=== PATIENT | female | born 2000 | race Caucasian/White ===

== ENCOUNTER 2023-07-04 13:13 | Emergency (ER) | payer SELFPAY ==
[~2023-07-04] VITALS: Ht 157.5 cm; Wt 57.0 kg
[2023-07-04 13:34] VITALS: BP 126/76; PULSE 74; RESP 18; TEMP 96.1
[2023-07-04] MEDS ORDERED: MOXI3DRO25 OS (13:42)
== END 2023-07-04 15:40 | disposition home or self-care (01) ==
LOC: EMS 13:17 → EDSEX 13:17 → EMS 15:40
DX: H10.9 Unspecified conjunctivitis (principal); F12.90 Cannabis use, unspecified, uncomplicated
CPT/HCPCS: 99283

== ENCOUNTER 2023-07-20 01:02 | Emergency (ER) | payer OTHER ==
[~2023-07-20] VITALS: Ht 160 cm; Wt 56.8 kg
[~2023-07-20 01:02] MED LIST: MOXI3DRO25 OS
[2023-07-20 01:20] VITALS: TEMP 99.3
[2023-07-20 01:31] LABS: COVID AG,FIA SOURCE NASAL SWAB
[2023-07-20 01:37] LABS: APPEARANCE,URINE CLEAR (CLEAR); BILIRUBIN,URINE NEGATIVE (NEGATIVE); COLOR,URINE YELLOW (YELLOW); GLUCOSE, URINE (UA) NEGATIVE (NEGATIVE); KETONES,URINE 40-60 mg/dL (NEGATIVE); LEUKOCYTE ESTERASE ,URINE NEGATIVE (NEGATIVE); NITRATE,URINE NEGATIVE (NEGATIVE); OCCULT BLOOD,URINE MODERATE (NEGATIVE); PH,URINE 6.5 (5.0-8.0); PH,URINE DRUG SCREEN 6.5 (5.0-8.0); PROTEIN,URINE TRACE mg/dL (NEGATIVE); SPECIFIC GRAVITIY, URINE 1.027 (1.003-1.030); UROBILINOGEN,URINE <=1.0 mg/dL (<=1.0)
[2023-07-20 01:44] LABS: ALCOHOL, URINE DRUG SCREEN NEGATIVE (NEGATIVE); AMPHET/METH SCREEN,URINE NEGATIVE (NEGATIVE); BARBITURATE SCREEN, URINE NEGATIVE (NEGATIVE); BENZODIAZEPINES SCREEN,URINE NEGATIVE (NEGATIVE); CANNABINOID SCREEN,URINE POSITIVE (NEGATIVE); COCAINE SCREEN,URINE NEGATIVE (NEGATIVE); METHADONE SCREEN, URINE NEGATIVE (NEGATIVE); OPIATE SCREEN,URINE NEGATIVE (NEGATIVE); PHENCYCLIDINE SCREEN,URINE NEGATIVE (NEGATIVE)
[2023-07-20 01:51] LABS: HCG,QUAL URINE NEGATIVE (NEGATIVE)
[2023-07-20 02:00] VITALS: BP 111/58; PULSE 107; RESP 22
[2023-07-20 02:02] LABS: SARS-COV2 (COVID) ANTIGEN,FIA Negative (Negative)
[2023-07-20 02:07] LABS: INFLUENZA TYPE A NEGATIVE FOR TYPE A (NEGATIVE); INFLUENZA TYPE B NEGATIVE FOR TYPE B (NEGATIVE)
[2023-07-20 02:13] LABS: BACTERIA,URINE None Seen /HPF (None Seen); SQUAMOUS EPITHELIAL CELL,UR Moderate /LPF (None Seen); WBC,URINE None Seen /HPF (0-5)
[2023-07-20] MEDS ORDERED: LORazepam 1 MG TABLET PO ONE (03:00)
[2023-07-20] MEDS ORDERED: ONDA-104 PO (03:06)
[2023-07-20] MEDS: ONDANSETRON HCL 4 MG TABLET PO ONE (03:10)
[2023-07-20] MEDS: LORazepam 0.5 MG TABLET PO ONE (03:19)
== END 2023-07-20 03:32 | disposition home or self-care (01) ==
LOC: EMS 01:02
DX: F41.9 Anxiety disorder, unspecified (principal); R11.2 Nausea with vomiting, unspecified; F12.90 Cannabis use, unspecified, uncomplicated; Z20.822 Contact with and (suspected) exposure to COVID-19
CPT/HCPCS: 99284; 87426; 84703; 87804; 93005; 80307; 81001; Q0162

== ENCOUNTER 2025-02-10 14:18 | Emergency (ER) | payer OTHER ==
[~2025-02-10] VITALS: Ht 157.5 cm; Wt 56.0 kg
[~2025-02-10 14:18] MED LIST changes: +ONDA-104 PO
[2025-02-10 15:10] LABS: PLATELET COUNT (AUTO) 286 K/uL (150-450); RED BLOOD CELL COUNT(AUTO) 5.07 MIL/uL (4.00-5.20); RED CELL DISTRIBUTION WIDTH 13.5 % (11.5-14.5); WHITE BLOOD COUNT (AUTO) 10.3 K/uL (4.5-11.0)
[2025-02-10 15:19] LABS: CALCIUM, TOTAL 8.4 mg/dL (8.8-10.5); CREATININE 0.45 mg/dL (0.60-1.30); GLOMERULAR FILTR. RATE CALC > 60 mL/min (>60); GLUCOSE,RANDOM 98 mg/dL (70-110); SODIUM SERUM 137 mmol/L (136-145); UREA NITROGEN, BLOOD 10 mg/dL (7-18)
[2025-02-10 15:35] VITALS: TEMP 98.605328
[2025-02-10] MEDS: SODIUM CHLORIDE 0.9% 1,000 ML IV ONE (16:17)
[2025-02-10 16:21] LABS: APPEARANCE,URINE CLEAR (CLEAR); GLUCOSE, URINE (UA) NEGATIVE (NEGATIVE); LEUKOCYTE ESTERASE ,URINE NEGATIVE (NEGATIVE); NITRATE,URINE NEGATIVE (NEGATIVE); OCCULT BLOOD,URINE TRACE (NEGATIVE); SPECIFIC GRAVITIY, URINE 1.033 (1.003-1.030)
[2025-02-10] MEDS: ONDANSETRON HCL 4 MG/2 ML VIAL IVP ONE (16:22)
[2025-02-10 16:36] LABS: SQUAMOUS EPITHELIAL CELL,UR Rare /LPF (None Seen)
[2025-02-10] MEDS: SODIUM CHLORIDE 0.9% 500 ML IV ONE (17:38)
[2025-02-10] MEDS ORDERED: ONDA-104 PO (18:18)
[2025-02-10 18:49] VITALS: BP 121/68; PULSE 102; RESP 16; O2SAT 97
== END 2025-02-10 18:52 | disposition home or self-care (01) ==
LOC: EMS 14:30
DX: R11.2 Nausea with vomiting, unspecified (principal); R19.7 Diarrhea, unspecified; R10.31 Right lower quadrant pain; F41.9 Anxiety disorder, unspecified; F12.90 Cannabis use, unspecified, uncomplicated; Z79.899 Other long term (current) drug therapy
CPT/HCPCS: 99284; 96374; 96361; 96375; 80048; 81001; 84703; 85025; 36415; J1200; J1630; J2405; J7030; J7040